=== PATIENT | male | born 1960 | race Caucasian/White ===

== ENCOUNTER → 2018-05-13 | Outpatient (CLI) | payer BC ==
--- NOTE | 2018-05-13 09:08 | RADIOLOGY REPORT (SQ) ---
EXAM DESCRIPTION: CERV SP 4 OR 5 VIEWS COMPLETED DATE/TIME: 05/13/2018 8:07 am REASON FOR STUDY: CERVICAL RADICULOPATHY (M54.12) M54.12 RADICULOPATHY, CERVICAL REGION M79.642 PA IN IN LEFT HAND COMPARISON: None. NUMBER OF VIEWS: Five views. TECHNIQUE: AP, lateral, obliques and odontoid radiographic images acquired of the cervical spine. LIMITATIONS: None. FINDINGS: MINERALIZATION: Normal. ALIGNMENT: Anatomic. VERTEBRAE: Vertebral bodies of normal height. DISCS: Small anterior osteophytes and anterior longitudinal ossification C5-C6. Disc height maintain ed. FORAMINA: Multilevel moderate to moderate severe foraminal narrowing bilaterally. On the left at C5 -C6, small posterior osteophytes encroach on the foramen. LATERAL AND POSTERIOR ELEMENTS: Mild facet arthrosis. The lateral masses and spinous processes with out significant findings. HARDWARE: None in the spine. SOFT TISSUES: No masses or calcifications. Lung apices clear. OTHER: A button overlies the right cervicothoracic junction. IMPRESSION: 1. Multilevel moderate to moderate severe bilateral foraminal narrowing. 2. Mild facet arthrosis. 3. No acute osseous findings. TECHNICAL DOCUMENTATION: JOB ID: [id number] [employer]- All Rights Reserved Reading location - IP/workstation name: [email or web address]
--- NOTE | 2018-05-13 14:42 | RADIOLOGY REPORT (SQ) ---
EXAM DESCRIPTION: MRI CERVICAL SPINE WITHOUT COMPLETED DATE/TIME: 05/13/2018 9:37 am REASON FOR STUDY: CERVICAL RADICULOPATHY (M54.12) M54.12 RADICULOPATHY, CERVICAL REGION M79.642 PA IN IN LEFT HAND COMPARISON: None. TECHNIQUE: Sagittal and Axial imaging includes T1, T2, STIR and gradient echo sequences. LIMITATIONS: Motion. FINDINGS: ALIGNMENT: Slight anterolisthesis C4 relative to C5. VERTEBRAE: Intact. BONE MARROW: Normal. No marrow replacement or reactive changes. DISCS: Desiccation multiple levels. HARDWARE: None in the spine. CORD AND BASE OF BRAIN: Normal in size and signal intensity. SOFT TISSUES: No soft tissue masses. C1-C2: No significant spinal stenosis. C2-C3: No significant spinal stenosis. Disc bulge and uncovertebral arthropathy with moderate left a nd mild right neural foraminal narrowing. C3-C4: Mild spinal stenosis due to disc osteophyte complex. Severe neural foraminal narrowing bilate rally. C4-C5: Similar findings as at C3- 4. C5-C6: Mild spinal stenosis. Soft disc herniation component to left of midline without cord compress ion. Severe neural foraminal narrowing bilaterally. C6-C7: Mild spinal stenosis due to disc osteophyte complex. Moderate neural foraminal narrowing bila terally. C7-T1: No significant spinal stenosis or exit foraminal stenosis. UPPER THORACIC: Incompletely imaged. No significant spinal stenosis or exit foraminal stenosis. OTHER: No other significant finding. IMPRESSION: Disc disease and uncovertebral arthropathy. Mild spinal stenosis C3- 4 through C6-7. V arying degrees of neural foraminal stenosis. TECHNICAL DOCUMENTATION: JOB ID: [id number] [employer]- All Rights Reserved Reading location - IP/workstation name: [email or web address]
== END ==
LOC: RAD 07:34
PROVIDERS: ATTEND Orthopaedic Surgery Hand Surgery
DX: M54.12 Radiculopathy, cervical region (principal); M79.642 Pain in left hand
CPT/HCPCS: 72050; 72141